=== PATIENT | male | born 1980 | race Caucasian/White ===

== ENCOUNTER → 2018-08-01 | Day surgery (SDC) | payer BC ==
[~2018-08-01] MED LIST: LIDOCAINE 1%/EPI 1:100,000 20 ML VIAL. INJ ONE
--- NOTE | 2018-08-01 10:47 | PDOC4 ---
Operative Note Operative Note Date: 08/01/2018 Preoperative diagnosis: Right forearm mass Postoperative diagnosis: Same Procedure: Excision of right forearm mass Surgeon: Bertrand Specimen: Forearm mass 3 x 3 cm Dictation: Patient is a 37-year-old male is complaining of enlarging mass on his right upper forearm and occasionally pain. Procedure of excision was explained to the patient detail was benefits were also discussed including bleeding infection alternatives to this procedure also discussed with patient seemed understanding gave both verbal and written consent to have the procedure performed. Patient was taken to the minor was room placed in the supine position his forearm was prepped and draped usual sterile fashion using ChloraPrep. An area over the mass was injected with 1% lidocaine with epinephrine incision was made with 15 blade scalpel was carried down through the subcutaneous tissue down to the mass which appeared to be scar tissue this was sharply excised. The wound was then closed in 2 layers a deep layer running 3-0 Vicryl and the skin was approximate 4 septic or Monocryl Mastisol Steri- Strips and island dressing were applied. Patient artery procedure well was discharged home in stable condition all sponge instrument needle counts listed as correct estimated blood loss 5 mL SABINA JOSHI MD Aug 01, 2018 10:47
--- NOTE | 2018-08-05 10:08 | PATHOLOGY ---
[facility] Accession Number: [id number] . 01 Material submitted: . RIGHT FOREARM MASS . 01 Clinical history: . Right forearm mass . 02 Diagnosis: Segments of focal synovial lined fibrous and fibroadipose tissue, right forearm mass: - Chronic bursitis. (JPM:paul; 08/02/2018) QMS/08/02/2018 . 02 Comment: Sections of the right forearm mass reveal segments of focal synovial lined fibrous and fibroadipose tissue consistent with bursa. The lining of the bursa focally has a papillary configuration and shows focal presence of fibrin. The wall of the bursa is thickened and fibrous and shows increased vascularity and focal hemosiderin-laden macrophages with minimal inflammatory component. The findings are consistent with chronic bursitis. (JPM:paul; 08/02/2018) . 02 Electronically signed: . Aldo Wolf MD, Pathologist NPI- [id number] . 01 Gross description: . The specimen is received in formalin, labeled "Julio Cesar Goss, right forearm mass" and consists of 2 yellow-gonzalez, soft to rubbery segment of tissue measuring 4.3 x 2.5 x 0.9 cm and 2.2 x 0.9 x 0.4 cm. The larger segment displays multiple papillary/polypoid structures ranging from 0.3 x 0.3 cm to 1.8 x 0.4 cm. The specimens are entirely submitted in A1-A5. (SDY; 08/01/2018) SYU/SYU . 02 Pathologist provided ICD-10: M70.20 . 02 CPT . 839557 Specimen Comment: A courtesy copy of this report has been sent to Specimen Comment: [phone], . Specimen Comment: Report sent to / DR FERRER Performed at: 01 [facility] [address], [place], [place] [id number] MD Lucas Gomez MD Phone: [phone] Performed at: 02 [facility] [address] [place], [place] [id number] MD Aldo Wolf MD Phone: [phone]
== END | disposition home or self-care (01) ==
LOC: SURG 09:15
PROVIDERS: ATTEND Surgery
DX: M71.58 Other bursitis, not elsewhere classified, other site (principal); Z88.0 Allergy status to penicillin; Z88.8 Allergy status to other drugs, medicaments and biological substances; Z79.899 Other long term (current) drug therapy; Z98.890 Other specified postprocedural states; Z82.49 Family history of ischemic heart disease and other diseases of the circulatory system
CPT/HCPCS: 11403; 12031; 88304; J3490